=== PATIENT | male | born 1970 | race African-American/Black ===

== ENCOUNTER 2021-03-17 04:20 | Day surgery (SDC) | payer OTHER ==
[2021-03-14 13:49] VITALS: BMI 26.3
[2021-03-17 09:06] LABS: PH,URINE 6.5 (5.0-8.0); URINE APPEARANCE CLEAR; URINE BILIRUBIN NEGATIVE (NEGATIVE); URINE COLOR ORANGE; URINE GLUCOSE (UA) NEGATIVE (NEGATIVE); URINE KETONE 1+ (NEGATIVE); URINE LEUK ESTERASE NEGATIVE (NEGATIVE); URINE NITRITE NEGATIVE (NEGATIVE); URINE PROTEIN TRACE (NEGATIVE); URINE UROBILINOGEN 0.2 mg/dL (0.2-1.0)
[2021-03-17] MEDS ORDERED: ROPIVACAINE HCL 0.5% 30ML VIAL ONE (09:25)
[2021-03-17] MEDS ORDERED: DEXAMETHASONE SOD PHOSPHATE 10 MG/1 ML VIAL ONE (09:25)
[2021-03-17] MEDS ORDERED: MIDAZOLAM HCL 2 MG/2 ML SINGLE DOSE VIAL ONE ×3 (09:27→10:17)
[2021-03-17] MEDS ORDERED: PROPOFOL 20 ML ONE ×2 (10:16→10:48)
[2021-03-17] MEDS ORDERED: DEXAMETHASONE SOD PHOSPHATE 4 MG/1 ML VIAL ONE (10:29)
[2021-03-17] MEDS ORDERED: ceFAZolin SODIUM 1 GM VIAL ONE (10:29)
[2021-03-17] MEDS ORDERED: ceFAZolin SODIUM 1 GM VIAL IVPB ONE (10:33)
[2021-03-17] MEDS ORDERED: ONDANSETRON 4 MG/2 ML VIAL IVPUSH PRN (10:58)
[2021-03-17] MEDS ORDERED: oxyCODONE HCL 5 MG TABLET PO PRN (10:58)
[2021-03-17] MEDS ORDERED: LACTATED RINGERS SOLUTION 1,000 ML IV SCH (11:00)
[2021-03-17 14:22] VITALS: BP 116/69; PULSE 75; TEMP 97.6
== END 2021-03-17 14:25 | disposition home or self-care (01) ==
LOC: JASU-SURG 04:20
PROVIDERS: ATTEND Orthopaedic Surgery
PROC: 0LQ24ZZ Repair Left Shoulder Tendon, Percutaneous Endoscopic Approach (ICD-10-PCS; principal; 2021-03-17 10:00)
PROC: 0RNK4ZZ Release Left Shoulder Joint, Percutaneous Endoscopic Approach (ICD-10-PCS; 2021-03-17 10:00)
DX: M75.102 Unspecified rotator cuff tear or rupture of left shoulder, not specified as traumatic (principal)
CPT/HCPCS: 81003; 94760; J1100

== ENCOUNTER 2021-12-26 08:26 | Day surgery (SDC) | payer BC ==
[2021-12-22 14:12] VITALS: BMI 26.6
[2021-12-26] MEDS ORDERED: CELECOXIB 200 MG CAPSULE PO ONE (08:47)
[2021-12-26] MEDS ORDERED: CEFAZOLIN 2 GM in DEXTROSE 5%-WATER - 50 ML IVPB ONE (08:47)
[2021-12-26] MEDS ORDERED: TRANEXAMIC ACID 1000 MG/10 ML VIAL IVPUSH ONE (08:47)
[2021-12-26] MEDS ORDERED: ROPIVACAINE HCL 0.5% 30ML VIAL ONE (10:04)
[2021-12-26] MEDS ORDERED: BUPIVACAINE HCL 50 ML ONE (10:04)
[2021-12-26] MEDS ORDERED: FENTANYL CITRATE/PF 50 MCG/ML VIAL ONE (10:07)
[2021-12-26] MEDS ORDERED: MIDAZOLAM HCL 2 MG/2 ML SINGLE DOSE VIAL ONE (10:07)
[2021-12-26] MEDS ORDERED: ceFAZolin SODIUM 1 GM VIAL ONE ×2 (10:28→19:22)
[2021-12-26] MEDS ORDERED: VANCOMYCIN 1,000 MG VIAL (RESTRICTED TO ID ONLY) ONE (10:28)
[2021-12-26] MEDS ORDERED: PROPOFOL 20 ML ONE ×3 (10:37)
[2021-12-26] MEDS ORDERED: MAG HYDROX/AL HYDROX/SIMETH 30 ML UNIT-DOSE CUP PO PRN (11:07)
[2021-12-26] MEDS ORDERED: ONDANSETRON 4 MG/2 ML VIAL IVPUSH PRN (11:07)
[2021-12-26] MEDS ORDERED: LACTATED RINGERS SOLUTION 1,000 ML IV SCH (11:15)
[2021-12-26] MEDS ORDERED: oxyCODONE HCL 5 MG TABLET PO PRN (12:48)
[2021-12-26] MEDS: oxyCODONE HCL 10 MG SUSTAINED ACTING TABLET PO SCH (15:24)
[2021-12-26] MEDS ORDERED: DEXTROSE 5%-WATER - 50 ML IVPB ONE (19:22)
[2021-12-26] MEDS: CEFAZOLIN 2 GM in DEXTROSE 5%-WATER - 50 ML IVPB SCH (19:26)
[2021-12-26] MEDS: SENNOSIDES/DOCUSATE COMBO (SENNA PLUS) TABLET (UD) PO SCH (21:27)
[2021-12-26] MEDS ORDERED: ATORVASTATIN CA 10 MG TABLET (FP) PO SCH (22:00)
[2021-12-27] MEDS: oxyCODONE HCL 5 MG TABLET PO PRN ×2 (01:48→08:16)
[2021-12-27] MEDS: oxyCODONE HCL 10 MG SUSTAINED ACTING TABLET PO SCH ×2 (03:45→13:04)
[2021-12-27] MEDS: CEFAZOLIN 2 GM in DEXTROSE 5%-WATER - 50 ML IVPB SCH (03:46)
[2021-12-27] MEDS ORDERED: ASPIRIN 325 MG TABLET PO SCH (08:00)
[2021-12-27 08:16] LABS: HEMATOCRIT 37.2 % (35.4-49); HEMOGLOBIN 12.7 G/dL (11.7-16.9); MCH 28.7 pg (25.7-33.7); MCHC 34.1 g/dl (32.0-35.9); MEAN PLT VOLUME 8.4 fl (7.5-11.1); PLATELET COUNT 256.8 10^3/uL (134-434); RBC 4.43 10^6/uL (4.00-5.60); RDW 14.6 % (11.9-15.9); WHITE BLOOD COUNT 6.6 10^3/uL (4.0-10.8)
[2021-12-27] MEDS ORDERED: PANTOPRAZOLE 40 MG TABLET PO SCH (10:00)
[2021-12-27] MEDS ORDERED: MULTIVITAMINS (DAILY MVI) TABLET (FP) PO SCH (10:00)
[2021-12-27] MEDS ORDERED: ATORVASTATIN CA 10 MG TABLET (FP) PO SCH (10:00)
[2021-12-27] MEDS ORDERED: CHLORTHALIDONE 25 MG TABLET PO SCH (10:00)
[2021-12-27] MEDS ORDERED: amLODIPine BESYLATE 5 MG TABLET (FP) PO SCH (10:00)
[2021-12-27] MEDS: SENNOSIDES/DOCUSATE COMBO (SENNA PLUS) TABLET (UD) PO SCH (10:02)
[2021-12-27] MEDS ORDERED: MAGNESIUM HYDROX 2400MG/30ML ORAL SUSPENSION 30 ML CUP PO ONE (13:53)
[2021-12-27 18:45] VITALS: BP 129/88; PULSE 79; TEMP 98.5
== END 2021-12-27 16:11 | disposition home or self-care (01) ==
LOC: FASUSAT 08:26 → FM/S 14:34 → FASUSAT 12-27 16:11
PROVIDERS: ATTEND Orthopaedic Surgery
PROC: 8E0YXBZ Computer Assisted Procedure of Lower Extremity (ICD-10-PCS; 2021-12-26)
PROC: 8E0Y0CZ Robotic Assisted Procedure of Lower Extremity, Open Approach (ICD-10-PCS; 2021-12-26)
PROC: 0SR90JA Replacement of Right Hip Joint with Synthetic Substitute, Uncemented, Open Approach (ICD-10-PCS; principal; 2021-12-26 10:45)
DX: M16.11 Unilateral primary osteoarthritis, right hip (principal)
CPT/HCPCS: 20985; 27130; C1776; S2900; 36415; 73502-TC-RT-FY; 85027; 88305-TC; 88311-TC; 94760; 97010-GP; 97116-GP; 97162-GP